=== PATIENT | male | born 1990 | race Caucasian/White ===

== ENCOUNTER 2022-04-04 21:08 | Emergency (ER) | payer SELFPAY ==
[~2022-04-04] VITALS: Ht 185.4 cm; Wt 90.1 kg
--- NOTE | 2022-04-04 21:48 | ED General ---
General Chief Complaint: Fever-Adult/Adol Stated Complaint: BOTH WRISTS HURT,HAD A TICK ON L SHOULDER,DIARRHEA Nursing Triage Note: PT ARRIVAL TO ER WITH COMPLAINT OF FEVER, BODY ACHES SINCE THIS EVENING. PATIENT STATES THAT HE HAD ABDOMINAL PAIN SINCE THIS AM BUT THAT HAS GOTTEN BETTER. PATIENTS SIGNIFICANT OTHER STATES THAT HE HAD A COUPLE TICK BITES RECENTLY. Source of Information: Patient Exam Limitations: No Limitations History of Present Illness Date Seen by Provider: Apr 04, 2022 Time Seen by Provider: 21:25 Initial Comments Patient ER by private conveyance with his and chief complaint that he is having some body aches, wrist aches, joint aches malaise fever with a T-max of 38.5 per nursing on arrival. Symptoms started about 2 days ago. No nausea vomiting diarrhea. He had a tick pulled off his left shoulder by his a couple days prior to symptoms starting. Has not had any rash elsewhere. He is not taking anything for the fever or pain nor does he want anything. He is having some rigors and chills. No known sick contacts or recent travel. No significant medical history. Does not follow with a primary care doctor. He has had 2 courses of vaccine for COVID-19. Allergies and Home Medications Allergies Coded Allergies: Sulfa (Sulfonamide Antibiotics) (Verified Allergy, Unknown, 04/04/22) Patient Home Medication List Home Medication List Reviewed: Yes Doxycycline Hyclate (Doxycycline Hyclate) 100 Mg Tablet, 100 MG PO BID Prescribed by: MUNA NUÑEZ on 04/04/222223 Review of Systems Review of Systems Constitutional: chills, fever, malaise EENTM: No ear discharge, No ear pain Respiratory: No cough, No short of breath Cardiovascular: No chest pain, No edema Gastrointestinal: No abdominal pain, No nausea, No vomiting Genitourinary: No discharge, No dysuria Musculoskeletal: see HPI; No back pain; joint pain Skin: No pruritus, No rash All Other Systems Reviewed Negative Unless Noted: Yes Past Bacwntc-Omdswp-Kbqcnf Hx Patient Social History Tobacco Use?: No Use of E-Cig and/or Vaping dev: No Substance use?: No Alcohol Use?: Yes Alcohol type: Beer Alcohol Frequency: Couple times a week Pt feels they are or have been: No Immunizations Up To Date Influenza Vaccine Up-to-Date: No; Not Current Second COVID19 Vaccination Tee: 10/14 Physical Exam Vital Signs Vital Signs - First Documented 04/04/22 21:28 Temp 38.5 Pulse 80 Resp 16 B/P (MAP) 110/65 (80) Pulse Ox 96 O2 Delivery Room Air Capillary Refill : Less Than 3 Seconds Height, Weight, BMI Height: '" Weight: lbs. oz. kg; 26.00 BMI Method: General Appearance: No Apparent Distress, WD/WN Eyes: Bilateral Eye Normal Inspection, Bilateral Eye PERRL, Bilateral Eye EOMI HEENT: PERRL/EOMI, Normal ENT Inspection, Pharynx Normal, Moist Mucous Membranes Neck: Full Range of Motion, Normal Inspection Respiratory: Lungs Clear, Normal Breath Sounds, No Accessory Muscle Use, No Respiratory Distress Cardiovascular: Regular Rate, Rhythm, No Edema, Normal Peripheral Pulses Extremity: Normal Capillary Refill, Normal Inspection, No Pedal Edema Neurologic/Psychiatric: Alert, Oriented x3 Progress/Results/Core Measures Suspected Sepsis SIRS Temperature: Pulse: 80 Respiratory Rate: 16 Laboratory Tests 04/04/22 22:00: White Blood Count 7.3 Blood Pressure 110 /65 Mean: 80 Laboratory Tests 04/04/22 22:00: Creatinine 0.90, Platelet Count 181, Total Bilirubin 0.3 Results/Orders Lab Results Laboratory Tests Test 04/04/22 21:40 04/04/22 22:00 Range/Units SARS-CoV-2 RNA (RT-PCR) Detected H Not Detecte White Blood Count 7.3 4.3-11.0 10^3/uL Red Blood Count 4.31 4.30-5.52 10^6/uL Hemoglobin 14.0 13.3-17.7 g/dL Hematocrit 41 40-54 % Mean Corpuscular Volume 95 80-99 fL Mean Corpuscular Hemoglobin 33 25-34 pg Mean Corpuscular Hemoglobin Concent 34 32-36 g/dL Red Cell Distribution Width 13.2 10.0-14.5 % Platelet Count 181 130-400 10^3/uL Mean Platelet Volume 9.0 9.0-12.2 fL Immature Granulocyte % (Auto) 0 % Neutrophils (%) (Auto) 81 H 42-75 % Lymphocytes (%) (Auto) 11 L 12-44 % Monocytes (%) (Auto) 5 0-12 % Eosinophils (%) (Auto) 2 0-10 % Basophils (%) (Auto) 1 0-10 % Neutrophils # (Auto) 5.9 1.8-7.8 10^3/uL Lymphocytes # (Auto) 0.8 L 1.0-4.0 10^3/uL Monocytes # (Auto) 0.4 0.0-1.0 10^3/uL Eosinophils # (Auto) 0.1 0.0-0.3 10^3/uL Basophils # (Auto) 0.1 0.0-0.1 10^3/uL Immature Granulocyte # (Auto) 0.0 0.0-0.1 10^3/uL Sodium Level 137 135-145 MMOL/L Potassium Level 4.4 3.6-5.0 MMOL/L Chloride Level 102 98-107 MMOL/L Carbon Dioxide Level 23 21-32 MMOL/L Anion Gap 12 5-14 MMOL/L Blood Urea Nitrogen 11 7-18 MG/DL Creatinine 0.90 0.60-1.30 MG/DL Estimat Glomerular Filtration Rate 116 BUN/Creatinine Ratio 12 Glucose Level 90 70-105 MG/DL Calcium Level 9.6 8.5-10.1 MG/DL Corrected Calcium 9.3 8.5-10.1 MG/DL Total Bilirubin 0.3 0.1-1.0 MG/DL Aspartate Amino Transf (AST/SGOT) 40 H 5-34 U/L Alanine Aminotransferase (ALT/SGPT) 36 0-55 U/L Alkaline Phosphatase 70 40-136 U/L C-Reactive Protein High Sensitivity 0.12 0.00-0.50 MG/DL Total Protein 7.0 6.4-8.2 GM/DL Albumin 4.4 3.2-4.5 GM/DL My Orders Orders - MUNA NUÑEZ Covid 19 Inhouse Test (04/04/22 21:37) Tick Panel With Lyme Eia (04/04/22 21:37) Cbc With Automated Diff (04/04/22 21:37) Comprehensive Metabolic Panel (04/04/22 21:37) Hs C Reactive Protein (04/04/22 21:37) Doxycycline Hyclate Tablet (Vibramycin T (04/04/22 22:00) Vital Signs/I&O 04/04/22 04/04/22 21:28 22:30 Temp 38.5 37.9 Pulse 80 78 Resp 16 16 B/P (MAP) 110/65 (80) 115/66 Pulse Ox 96 97 O2 Delivery Room Air Room Air Capillary Refill : Less Than 3 Seconds Blood Pressure Mean: 80 Progress Note : Time: 21:45 Progress Note He has declined any antipyretics. Vital signs are okay except for his fever. We will check some basic labs, send off for a tick panel, give him some doxycycline and check him for COVID-19. Departure Impression Primary Impression: COVID-19 Additional Impression: Tick bite Qualified Codes: S20.462A - Insect bite (nonvenomous) of left back wall of thorax, initial encounter; W57.XXXA - Bitten or stung by nonvenomous insect and other nonvenomous arthropods, initial encounter Disposition: 01 HOME, SELF-CARE Condition: Stable Departure-Patient Inst. Decision time for Depature: 22:21 Referrals: NO,LOCAL PHYSICIAN (PCP/Family) Primary Care Physician Patient Instructions: COVID-19 Overview, Insect Bites and Stings (DC), Lyme Disease Add. Discharge Instructions: Doxycycline 1 capsule with food twice a day for 14 days to treat potential tick fever. We should have results in 3 to 4 days on the tick panel. If it is positive then we will call you. Return to the ER for intractable vomiting, dehydration, shortness of air resulting in oxygen saturations below 90% while at rest or other worrisome symptoms. Tylenol 1000 mg every 8 hours as needed for body aches or fever. Ibuprofen 800 mg every 8 hours needed for body aches or fever. You are off isolation when you are 24 hours symptoms free. All discharge instructions reviewed with patient and/or family. Voiced understanding. Scripts Doxycycline Hyclate (Doxycycline Hyclate) 100 Mg Tablet 100 MG PO BID for 14 Days, #28 TAB 0 Refills Prov: MUNA NUÑEZ 04/04/22 MUNA NUÑEZ Apr 04, 2022 21:48
[2022-04-04] MEDS ORDERED: DOXYCYCLINE 100 MG (VIBRAMYCIN) TABLET PO ONE (22:00)
[2022-04-04 22:09] LABS: BASOPHILS # (AUTO) 0.1 10^3/uL (0.0-0.1); BASOPHILS % (AUTO) 1 % (0-10); EOSINOPHILS # (AUTO) 0.1 10^3/uL (0.0-0.3); EOSINOPHILS % (AUTO) 2 % (0-10); HEMATOCRIT 41 % (40-54); LYMPHOCYTES # (AUTO) 0.8 10^3/uL (1.0-4.0); LYMPHOCYTES % (AUTO) 11 % (12-44); MEAN CORPUSCULAR HEMOGLOBIN 33 pg (25-34); MEAN CORPUSCULAR HGB CONC 34 g/dL (32-36); MEAN CORPUSCULAR VOLUME 95 fL (80-99); MONOCYTES # (AUTO) 0.4 10^3/uL (0.0-1.0); MONOCYTES % (AUTO) 5 % (0-12); NEUTROPHILS # (AUTO) 5.9 10^3/uL (1.8-7.8); NEUTROPHILS % (AUTO) 81 % (42-75); PLATELET COUNT 181 10^3/uL (130-400); WHITE BLOOD COUNT 7.3 10^3/uL (4.3-11.0)
[2022-04-04 22:17] LABS: ALBUMIN 4.4 GM/DL (3.2-4.5); POTASSIUM 4.4 MMOL/L (3.6-5.0)
[2022-04-04 22:18] LABS: CALCIUM 9.6 MG/DL (8.5-10.1)
[2022-04-04 22:21] LABS: BILIRUBIN,TOTAL 0.3 MG/DL (0.1-1.0)
[2022-04-04 22:23] LABS: CREATININE SERUM 0.9 MG/DL (0.60-1.30)
[2022-04-04] MEDS ORDERED: DOXY100T2 PO (22:24)
[2022-04-04 22:30] VITALS: BP 115/66
== END 2022-04-04 22:30 | disposition home or self-care (01) ==
LOC: ER 21:13
DX: U07.1 COVID-19 (principal); S40.262A Insect bite (nonvenomous) of left shoulder, initial encounter; Z28.310 Unvaccinated for COVID-19; W57.XXXA Bitten or stung by nonvenomous insect and other nonvenomous arthropods, initial encounter
CPT/HCPCS: 36415; 80053; 85025; 86141; 86618; 86666; 86668; 86757; 87636